=== PATIENT | male | born 1980 | race Caucasian/White ===

== ENCOUNTER 2017-05-18 18:59 | Emergency (ER) | payer OTHER ==
[~2017-05-18] VITALS: Ht 175.3 cm; Wt 122.5 kg
[~2017-05-18 18:59] MED LIST: BACTRIM DS TAB1 EACH PO; FLEXERIL PO; IBUPROFEN 800800 MG PO; LEXAPRO20 MG; NAPROSYN500 MG PO; PRILOSEC40 MG; TRAMADOL 50 MG50 MG PO; VALIUM5 MG PO
[2017-05-18] MEDS ORDERED: MOBIC15 MG PO (19:10)
[2017-05-18] MEDS ORDERED: SERTRALINE HCL100 MG PO (19:10)
[2017-05-18] MEDS ORDERED: OMEPRAZOLE 20 M20 M1 PO (19:10)
[2017-05-18] MEDS ORDERED: ADVAIR 100-501 EACH INH (19:10)
[2017-05-18 22:18] VITALS: BP 128/78
== END 2017-05-18 22:08 | disposition home or self-care (01) ==
LOC: ER 18:59
DX: S61.211A Laceration without foreign body of left index finger without damage to nail, initial encounter (principal); F10.99 Alcohol use, unspecified with unspecified alcohol-induced disorder; Z88.5 Allergy status to narcotic agent; Z88.1 Allergy status to other antibiotic agents; Z88.8 Allergy status to other drugs, medicaments and biological substances; Z87.891 Personal history of nicotine dependence; W27.8XXA Contact with other nonpowered hand tool, initial encounter; Y93.89 Activity, other specified; Y92.89 Other specified places as the place of occurrence of the external cause; Y99.8 Other external cause status